=== PATIENT | female | born 1955 | race Caucasian/White ===

== ENCOUNTER 2018-06-23 07:43 | Inpatient (IN) ==
[2018-06-23] MEDS ORDERED: *HR* OxyCODONE Immed Rel 5 MG TABLET PO ONE (08:03)
[2018-06-23] MEDS ORDERED: Gabapentin 300 MG CAPSULE PO ONE (08:04)
[2018-06-23] MEDS ORDERED: Celecoxib 100 MG CAPSULE PO ONE (08:04)
[2018-06-23] MEDS ORDERED: Acetaminophen IV 1,000 MG/100 ML INFUS..BTL IVPB ONE (08:04)
--- NOTE | 2018-06-23 08:07 | Anesthesia Evaluation PreOp ---
Date of Encounter: 06/23/18 Time of Encounter: 08:06 - Past History Planned Operation: Left Total Shoulder Cardiac History: Hyperlipidemia, Other (Hx NSVT placed on Metoprolol PRN - not needed for 1 year) Pulmonary History: Former smoker (stop30 years ago) [employer]K [employer]ER History: Denies Any Significant HX Other Medical History: Thyroid (Hypo), GERD (Barretts Esophagus), Other (Fibromyalgia) Anesthesia History: No Prior Anesthetic Complications, Past Anesthesia (Tonsillectomy, tubal, laparoscopy, colonoscopy, CTR, EGD dilitation, ablation) : No Alcohol Use: none Drug use: none Medications and Allergies Levothyroxine Sodium [Levoxyl] 75 mcg PO DAILY 06/23/18 [History] RX: Cyclobenzaprine HCl 5 mg PO HS PRN 06/23/18 [History] RX: Docusate Sodium [Colace] 100 mg PO BID 5 Days #10 capsule 06/23/18 [Rx] RX: OxyCODONE Immed Rel [Roxicodone 5 MG] 5 mg PO Q6HR PRN 5 Days #20 tablet 06/23/18 [Rx] RX: hydrOXYzine HCl [Hydroxyzine HCl] 25 mg PO DAILY 06/23/18 [History] Allergy/AdvReac Type Severity Reaction Status Date / Time peanut Allergy Migraine Unverified 06/16/18 15:11 shrimp Allergy Migraine Unverified 06/16/18 15:11 - Meds/Allergy Pre-op Review Medications Reviewed: Yes Allergies Reviewed: Yes Beta Blockers on Current Med List: No Anesthesia Results - Labs Laboratory Tests 06/16/18 06/16/18 06/16/18 15:20 15:20 15:20 WBC 7.4 Hgb 13.4 Hct 39.0 Plt Count 289 INR 1.1 Sodium 139 Potassium 3.9 Chloride 106 Carbon Dioxide 24 BUN 18 Creatinine 0.69 - Imaging Additional studies: ECHO 12/11/14 EF- 55-60% Anesthesia Exam O2 Sat Height 1.55 m Weight 64.864 kg O2 Sat by Pulse Oximetry 98 Vital Signs Temp Pulse Resp BP Pulse Ox 98.4 F 83 18 143/70 98 06/23/18 08:05 06/23/18 08:05 06/23/18 08:05 06/23/18 08:05 06/23/18 08:05 NPO (# of Hours): > 8 hrs Pain Scale: 0 Pain Scale Used: Numeric (1 - 10) - HEENT Pupil (Motor): Pupils equal, EOMI Mallampati: II Teeth: Missing Denture Type: Upper: Partial Oral Opening: Greater than 3 - FORK ASSEMBLER LOC: Oriented [employer]K ASSEMBLER Motor: Normal RUE, Normal LUE, Normal RLE, Normal LLE, Normal Face [employer]K [employer]ER Sensory: Normal: RUE, LUE, RLE, LLE, Face - Cardiac Rhythm: Regular Murmur: None JVD: No Carotid Bruit: No - Pulmonary Breath Sounds: bilateral Clear Respiratory Effort: Symmetrical Anesthesia Assess/Plan ASA Score: 3 Level of consciousness: Cooperative, Oriented, Tranquil Anesthetic Plan: General, Regional Nerve Block Regional Nerve Block Plan: Supraclavicular Autologous Blood: Yes Monitoring Plan: Standard Monitors Recovery Plan: PACU
[2018-06-23] MEDS ORDERED: CeFAZolin Syr 2,000MG/20 ML 2,000 MG/20 ML SYRINGE IVPB ONE (08:11)
[2018-06-23] MEDS ORDERED: *HR* FentaNYL (PF) 100 MCG/2 ML VIAL ONE (08:13)
[2018-06-23] MEDS ORDERED: *HR* Midazolam HCl 2 MG/2 ML VIAL ONE (08:13)
[2018-06-23] MEDS ORDERED: *HR* Succinylcholine 200 MG/10 ML VIAL IVP ONE (08:13)
[2018-06-23] MEDS ORDERED: Lidocaine -MPF 4% 5 ML AMPUL ONE (08:13)
[2018-06-23] MEDS ORDERED: Lidocaine -MPF 2% 2 ML VIAL ONE (08:13)
[2018-06-23] MEDS ORDERED: *HR* Propofol 200 MG/20 ML VIAL IVP ONE (08:14)
[2018-06-23] MEDS ORDERED: Ringers Solution, Lactated 1,000 ML IVC SCH ×3 (08:15→11:18)
--- NOTE | 2018-06-23 08:36 | History & Physical Report ---
Date of Encounter: 06/23/18 Time of Encounter: 08:36 24 Hour HP Update - Instructions Instructions: If the History and Physical is less than 30 days old and was completed prior to A.M. admission and or procedure and has NOT been updated on calendar day of procedure please complete this update prior to performing procedure. - Update Patient reports changes in Medical Condition: No Changes in examination, assessment, or condition: No Changes in Medication: No Preop tests/diagnostics Reviewed: Yes Surgery Remains Indicated: Yes Consent for Planned Operative Procedure(s) Verified: Yes - Pre-Operative Checklist Preoperative Checklist Indicated: No Prophylactic Antibiotic Ordered: Yes Is VTE Prophylaxis Indicated?: Yes
[2018-06-23] MEDS ORDERED: ROPIVACAINE HCL/PF 0.5% 30 ML VIAL ONE (08:42)
[2018-06-23] MEDS ORDERED: ROPIVACAINE/PF/NS SYRINGE INTRAART ONE (08:43)
[2018-06-23] MEDS ORDERED: Ondansetron 4 MG/2 ML VIAL IVP ONE (08:45)
[2018-06-23] MEDS ORDERED: *HR* HYDROmorphone (PF) 1 MG/ML SYRINGE IVP PRN (08:45)
[2018-06-23] MEDS ORDERED: *HR* Labetalol 20 MG/4 ML SYRINGE IVP PRN (08:45)
[2018-06-23] MEDS ORDERED: *HR* Promethazine 25 MG/ML VIAL IVP PRN (08:45)
[2018-06-23] MEDS ORDERED: *HR* OxyCODONE Immed Rel 5 MG TABLET PO PRN ×2 (08:45→11:18)
--- NOTE | 2018-06-23 09:14 | Discharge Summary ---
Orders not resulted at time of discharge: Pending orders 06/23/18 01:00 XR post op reverse apex LT [XR] Routine Hemoglobin and Hematocrit [HEME] Routine 06/23/18 08:03 US anesthesia pain block [US] Routine Date of Encounter: 06/23/18 - Hospital Course Hospital course: Ms. Welch is a 62 year old female - Time Spent with Patient Total time spent providing and/or coordinating discharge services: - Discharge Medications Prescriptions: New OxyCODONE Immed Rel [Roxicodone 5 MG] 5 mg PO Q6HR PRN 5 Days #20 tablet PRN Reason: Severe Pain Docusate Sodium [Colace] 100 mg PO BID 5 Days #10 capsule No Action Levothyroxine Sodium [Levoxyl] 75 mcg PO DAILY hydrOXYzine HCl [Hydroxyzine HCl] 25 mg PO DAILY Cyclobenzaprine HCl 5 mg PO HS PRN PRN Reason: Sleep Home Medications: Cyclobenzaprine HCl 5 mg PO HS PRN 06/23/18 [History] Docusate Sodium [Colace] 100 mg PO BID 5 Days #10 capsule 06/23/18 [Rx] Levothyroxine Sodium [Levoxyl] 75 mcg PO DAILY 06/23/18 [History] OxyCODONE Immed Rel [Roxicodone 5 MG] 5 mg PO Q6HR PRN 5 Days #20 tablet 06/23/18 [Rx] hydrOXYzine HCl [Hydroxyzine HCl] 25 mg PO DAILY 06/23/18 [History] Allergies/Adverse Reactions: Allergy/AdvReac Type Severity Reaction Status Date / Time peanut Allergy Migraine Unverified 06/16/18 15:11 shrimp Allergy Migraine Unverified 06/16/18 15:11 Primary care physician: Darian Ni MD - Discharge Instructions Follow Up With: Darian Ni MD [Primary Care Provider] -
--- NOTE | 2018-06-23 09:20 | Anesthesia Procedures ---
Date of Encounter: 06/23/18 Time of Encounter: 09:15 Procedures: Anesthesia - Nerve Block Procedure Date: 06/23/18 Time: 09:15 Surgical Procedure: left reverse total shoulder Checklist: Correct procedure, History checked Correct side: Left Blood Thinner: No Monitor Applied: EKG, BP, Pulse Oximetry Supplemental Oxygen via Nasal Cannula (L/min): 2 Sedation: Versed (mg): 2 Sedation: Fentanyl (mcg): 150 Indication: Post Op Analgesia Block Type: Supraclavicular, Other (ICB/ICP) Catheter placed: No Sterile Technique: Yes Ultrasound used: Yes Anatomy identified: Yes Visual spread of Local: Yes Neuro Stimulation: No Blood on Needle Aspiration: No Smooth Injection of Local: Yes Pain with Injection of Local: No Prep: Chlorhexadine Needle: 22 x 50 mm Stimuplex Local: Ropivacaine (0.5% with 8mg decadron 25ml / 0.25% 15 ml (ICB/ICP)) Volume (cc): 40 total Number of Attempts: 1 Complications: None/effective block Vitals: Vital Signs/O2 Sat, Most Current Temp Pulse Resp BP Pulse Ox 98.4 F 85 18 136/63 97 06/23/18 08:05 06/23/18 09:17 06/23/18 08:05 06/23/18 09:17 06/23/18 09:17
[2018-06-23] MEDS ORDERED: Ethanol\\Acetic Acid\\Na Ace\\Ben 1,000 ML IRRIG.SOLN IR ONE (09:23)
[2018-06-23] MEDS ORDERED: *HR* PHENYLEPHRINE 1,000 MCG/10 ML SYRINGE IVP ONE (09:49)
[2018-06-23] MEDS ORDERED: Ondansetron 4 MG/2 ML VIAL ONE (09:53)
[2018-06-23] MEDS ORDERED: Dexamethasone 4 MG/ML VIAL ONE (09:53)
[2018-06-23] MEDS ORDERED: EPHEDrine 50 MG/ML VIAL ONE (10:20)
--- NOTE | 2018-06-23 10:25 | Orthopedic Operative Note ---
Date of procedure: 06/23/18 Pre-op diagnosis: Left shoulder cuff tear arthropathy Post-op diagnosis: same Procedure: Procedure: Total Shoulder Replacment Reverse, left Estimated blood loss: 50 cc Hardware: Metal and polyethylene replacement: Arthrex 24, +2 , 25 mm screw glenoid baseplate, 4 locking 5.5 screw, 36+4 glenosphere, 6 apex humeral stem, poly insert 3 Exam Under anesthesia: Full motion no instability Procedural Notes: Grade 4 arthritic changes humeral head glenoid socket. Operative procedure: The patient was brought to the operating room and placed on the operating room table. After general anesthesia was administered the operative shoulder was examined. Findings were noted. The patient was placed in the modified beachchair position. All pressure points were padded appropriately. And the head was stabilized in the neutral position. The operative extremity was prepped and draped in the sterile surgical fashion. The patient received IV antibiotics prior to skin incision. A standard deltopectoral approach was made to the operative shoulder. Incision was made to the skin and subcutaneous tissue,hemo stasis was obtained with Bovie cautery. Using careful blunt dissection the cephalic vein was identified and mobilized medially. The deltopectoral interval was developed and the clavipectoral fascia was incised. The subscap was released off the lesser tuberosity and tagged with #2 FiberWire suture subscap irreparable. The humerus was dislocated patient noted to have irreparable tear supraspinatus tendon, and the humeral cut was made along the anatomic neck. Patient noted to have grade 4 arthritic changes humeral head glenoid socket. Anterior and posterior Bankart retractors were placed to expose the glenoid. The glenoid guide was seated and the centering hole was made. It was reamed with the appropriate reamer. The 24, +2, 25 mm screw, baseplate was seated and secured with (2) 4.5 screws and 2 5.5 screw. The baseplate was irrigated and dried and the 36+4 Glenosphere was seated and secured with the Nobles taper. The Nobles taper was tested and found to be secure, glenosphere fixation was secondarily secured with the central screw. The humerus was redislocated and prepared with the diaphyseal reamers, followed by a broaching process up to the appropriate size 6 in the patient's anatomic version. The metaphyseal reamer was then utilized. Trial reduction found the shoulder to be relocatable. Trial components were removed and 6 stem was impacted in place in the patient's anatomic version. Trial reduction found the shoulder to be relocatable and stable with the appropriate 3 Trial component was removed and the real implant was seated and secured the shoulder was reduced. The shoulder had excellent motion and excellent stability and no evidence of dislocation. The deep tissue was irrigated with pulse irrigation. The PA close the shoulder. The deltopectoral interval was closed with a running #1 PDS suture, subcutaneous tissue was irrigated and closed with 0 PDS suture, the skin was closed with De rmabond. The patient was placed in a sterile dressing, abduction brace and extubated. The patient was then transferred to the recovery room in stable condition. Anesthesia: LIZ Surgeon: Demario Rosario Was there an farm assistant present: No Estimated blood loss (cc): 50 Condition: stable Disposition: PACU
--- NOTE | 2018-06-23 11:04 | Anesthesia Evaluation Post Op ---
Date of Encounter: 06/23/18 Time of Encounter: 11:03 - Vital Signs Vital Signs: Vital Signs/O2 Sat/Glucose, Most Recent Temp Pulse Resp BP Pulse Ox 97.7 F 90 16 120/67 98 06/23/18 11:02 06/23/18 11:02 06/23/18 11:02 06/23/18 11:02 06/23/18 11:02 - Lungs Lungs: Clear Ascult./Percussion - Airway Airway: Non-obstructed - Cardiovascular Regular Rate - Mental Status Mental Status: Alert & Oriented, Answers Appropriately - Pain Pain Scale: 0 - Nausea Vomiting Nausea Vomiting: Not Present - Hydration Hydration: NPO - Discharge PostOp Status: Transfer Patient to floor
[2018-06-23 11:16] LABS: Hematocrit 39.9 % (35.3-44.9); Hemoglobin 13.8 g/dL (11.5-15.4)
[2018-06-23] MEDS ORDERED: Temazepam 15 MG CAPSULE PO PRN (11:18)
[2018-06-23] MEDS ORDERED: *HR* OxyCODONE/APAP 5/325 TABLET PO PRN (11:18)
[2018-06-23] MEDS ORDERED: traMADol 50 MG TABLET PO PRN (11:18)
[2018-06-23] MEDS ORDERED: Ondansetron 4 MG/2 ML VIAL IVP PRN (11:18)
[2018-06-23] MEDS ORDERED: MOM Conc 10 ML UD.LIQ PO PRN (11:18)
[2018-06-23] MEDS ORDERED: Sennosides 8.6 MG TABLET PO PRN (11:18)
[2018-06-23] MEDS ORDERED: *HR* Enoxaparin 30 MG/0.3 ML SYRINGE SQ SCH ×3 (14:00→18:00)
[2018-06-23 15:24] VITALS: BP 149/83
--- NOTE | 2018-06-23 17:11 | Physician Discharge Referral ---
Home Health/Hosp Referral Info Transfer to: Home Health Attending Provider: Abraham - Respiratory Orders None Smoking Cessation: Smoking cessation has been advised. For more information, call the [place] Tobacco Quit Line at 0-028-JTMI-NOW. - Diet/Nutrition Diet/Nutrition Orders: Regular - Activity Activity Orders: Up ad douglas, Ambulate, Chair - Services Needed Following services are medically necessary services: Nursing, Home Health Aide, Physical Therapy, Occupational Therapy Home Care Orders: Opsite dressing, leave intact until first post-operative visit. Zipline/James in place, plan to remove at post-operative day #14-16. If dressing becomes >50% saturated, contact office, remove dressing and place appropriate dressing in its place. Do not allow for dressing to get wet. Shoulder Precautions x 6 weeks. Apply cold therapy wrap 3-6x/day for 20 minutes at a time. Encourage ambulation throughout the day. Use Incentive spirometer 10x/hour. Elevate affected extremity above heart as tolerated. NWB to affected upper extremity x 6 weeks. Will remove brace at first post-operative appointment. OK to remove during PT/OT and Home exercises. - Transfer Medications Home Medications: Cyclobenzaprine HCl 5 mg PO HS PRN 06/23/18 [History] Docusate Sodium [Colace] 100 mg PO BID 5 Days #10 capsule 06/23/18 [Rx] Levothyroxine Sodium [Levoxyl] 75 mcg PO DAILY 06/23/18 [History] OxyCODONE Immed Rel [Roxicodone 5 MG] 5 mg PO Q6HR PRN 5 Days #20 tablet [Rx] hydrOXYzine HCl [Hydroxyzine HCl] 25 mg PO DAILY 06/23/18 [History] Allergies/Adverse Reactions: Allergy/AdvReac Type Severity Reaction Status Date / Time peanut Allergy Migraine Unverified 06/16/18 15:11 shrimp Allergy Migraine Unverified 06/16/18 15:11 Certification: Further, I certify that my clinical findings support that this patient is homebound (i.e. absences from home require considerable and taxing effort and are for medical reasons or orthodoxy services or infrequently or short duration when for other reasons) because: Homebound Reason: Post-surgery restriction and or conditions limit ability to leave home Attestation: My signature below is to certify that this patient is under my care and that I, or nurse practitioner, or a physician school office assistant working with me, has a [id number] encounter with this patient.
== END 2018-06-23 17:16 | disposition home health service (06) | DRG 483 ==
LOC: SAMDAY 07:43 → 3NENU 11:17
PROVIDERS: ADMIT Orthopaedic Surgery; ATTEND Orthopaedic Surgery